=== PATIENT | female | born 1995 | race Caucasian/White ===

== ENCOUNTER → 2017-10-15 | Emergency (ER) | payer OTHER ==
[~2017-10-15] VITALS: Ht 157.5 cm; Wt 44.0 kg
== END | disposition left against medical advice (07) ==
LOC: ER 20:15
DX: Z53.20 Procedure and treatment not carried out because of patient's decision for unspecified reasons (principal)

== ENCOUNTER 2017-11-22 00:07 | Emergency (ER) | payer OTHER ==
[~2017-11-22] VITALS: Ht 157.5 cm; Wt 43.5 kg
[2017-11-22] MEDS ORDERED: MACRODANTIN100 M1 PO (04:54)
[2017-11-22] MEDS ORDERED: PRENATABS RX T1 EACH PO (04:56)
== END 2017-11-22 07:20 | disposition home or self-care (01) ==
LOC: ER 00:07
DX: Z34.01 Encounter for supervision of normal first pregnancy, first trimester (principal); R10.2 Pelvic and perineal pain; N39.0 Urinary tract infection, site not specified

== ENCOUNTER 2017-12-01 20:47 | Emergency (ER) | payer OTHER ==
[~2017-12-01] VITALS: Ht 157.5 cm; Wt 44.0 kg
[~2017-12-01 20:47] MED LIST: MACRODANTIN100 M1 PO; PRENATABS RX T1 EACH PO
== END 2017-12-02 04:26 | disposition home or self-care (01) ==
LOC: ER 20:47
DX: O20.0 Threatened abortion (principal); Z34.01 Encounter for supervision of normal first pregnancy, first trimester

== ENCOUNTER 2018-06-26 21:38 | Outpatient (CLI) | payer OTHER | END 2018-06-27 14:06 | disposition HB | LOC: OBS/DEL 21:38 | DX: O26.893 Other specified pregnancy related conditions, third trimester (principal); O47.1 False labor at or after 37 completed weeks of gestation; Z34.03 Encounter for supervision of normal first pregnancy, third trimester ==

== ENCOUNTER 2018-07-08 07:37 | Inpatient (IN) | payer OTHER ==
[~2018-07-08] VITALS: Ht 157.5 cm; Wt 57.2 kg
== END 2018-07-10 13:10 | DRG 768 ==
LOC: LDR 07:37 → OB/GYN 07:37 → LDR 19:21 → OB/GYN 07-09 00:35
PROC: 10E0XZZ Delivery of Products of Conception, External Approach (ICD-10-PCS; principal; 2018-07-08)
PROC: 0DQR0ZZ Repair Anal Sphincter, Open Approach (ICD-10-PCS; 2018-07-08)
PROC: 4A1HXCZ Monitoring of Products of Conception, Cardiac Rate, External Approach (ICD-10-PCS; 2018-07-08)
DX: O70.21 Third degree perineal laceration during delivery, IIIa (principal); Z37.0 Single live birth; Z3A.39 39 weeks gestation of pregnancy

== ENCOUNTER 2021-12-31 13:49 | Emergency (ER) | payer OTHER ==
[~2021-12-31] VITALS: Ht 157.5 cm; Wt 59.9 kg
[2021-12-31] MEDS ORDERED: FOLIC ACID0.8 M1 (14:37)
[2021-12-31] MEDS ORDERED: MUCINEX D ER 61 EACH PO (18:47)
[2021-12-31] MEDS ORDERED: CETIRIZINE HCL5 MG PO (18:47)
[2021-12-31] MEDS ORDERED: LEVALBUTER0.63 MG/3 IH (18:47)
== END 2021-12-31 19:14 | disposition home or self-care (01) ==
LOC: ER 13:49
DX: O26.892 Other specified pregnancy related conditions, second trimester (principal); O98.512 Other viral diseases complicating pregnancy, second trimester; A49.3 Mycoplasma infection, unspecified site; J06.9 Acute upper respiratory infection, unspecified; Z3A.24 24 weeks gestation of pregnancy; Z88.0 Allergy status to penicillin; Z88.1 Allergy status to other antibiotic agents

== ENCOUNTER 2022-03-13 11:51 | Emergency (ER) | payer OTHER ==
[~2022-03-13] VITALS: Ht 157.5 cm; Wt 63.5 kg
[~2022-03-13 11:51] MED LIST changes: +CETIRIZINE HCL5 MG PO; +FOLIC ACID0.8 M1; +LEVALBUTER0.63 MG/3 IH; +MUCINEX D ER 61 EACH PO
[2022-03-13] MEDS ORDERED: PEPCID AC20 MG PO (19:07)
[2022-03-13] MEDS ORDERED: ONDANSETRON ODT8 MG PO (19:07)
[2022-03-13] MEDS ORDERED: MACRODANTIN100 M1 PO (19:11)
== END 2022-03-13 20:06 | disposition home or self-care (01) ==
LOC: ER 11:51
DX: O99.619 Diseases of the digestive system complicating pregnancy, unspecified trimester (principal); K92.89 Other specified diseases of the digestive system; K29.70 Gastritis, unspecified, without bleeding; Z88.1 Allergy status to other antibiotic agents; Z88.0 Allergy status to penicillin

== ENCOUNTER 2024-02-15 14:30 | Emergency (ER) | payer OTHER ==
[~2024-02-15] VITALS: Ht 162.6 cm; Wt 50.8 kg
[~2024-02-15 14:30] MED LIST changes: +ONDANSETRON ODT8 MG PO; +PEPCID AC20 MG PO
[2024-02-15] MEDS ORDERED: 0.9 % SODIUM CHLORIDE 1,000 ML IV ONE (16:45)
[2024-02-15] MEDS ORDERED: HYOSCYAMINE SULFATE 0.125 MG TAB.SUBL SL ONE (16:45)
[2024-02-15] MEDS ORDERED: ONDANSETRON HCL 2 MG/ML VIAL IV ONE (16:45)
[2024-02-15 17:02] LABS: MEAN CELL VOLUME 92.4 fL (80.00-100.00); MEAN CORPUSCULAR HEMOGLOBIN 31.5 pg (27.00-32.0); MEAN CORPUSCULAR HGB CONC 34.1 g/dl (32.0-36.0); PLATELET COUNT 273 K/uL (150-450); RED BLOOD COUNT 4.76 M/uL (4.00-6.00)
[2024-02-15 17:26] LABS: ALBUMIN 4.6 gm/dL (3.4-5.0); BILIRUBIN TOTAL 0.52 mg/dL (0.3-1.2); CALCIUM 9.9 mg/dL (8.5-10.1); CREATININE SERUM 0.75 mg/dL (0.55-1.02); GFR 93.41; GLOBULINA 4.1 G/DL (2.4-3.5); POTASSIUM 3.88 mEq/L (3.5-5.1); TOTAL PROTEIN 8.7 gm/dL (6.4-8.2)
[2024-02-15 18:10] LABS: PH,URINE 6.5 (5.0-8.0); URINE APPEARANCE Clear; URINE BILIRRUBIN Negative (NEGATIVE); URINE BLOOD Negative; URINE COLOR Yellow; URINE GLUCOSE Negative (NEGATIVE); URINE LEUKOCYTE Negative; URINE NITRATE Negative; URINE PROTEIN Negative (NEGATIVE); URINE UROBILINOGEN 0.2 E.U./dl
[2024-02-15 18:14] LABS: URINE BACTERIA 591.9 uL (0.0-1933); URINE EPITHELIAL CELLS 11.2 uL (0.0-38.8); URINE RBC 0.6 uL (0.0-20.8); URINE WBC 5.7 uL (0.0-23.2)
== END 2024-02-15 19:16 | disposition home or self-care (01) ==
LOC: ER 14:31
PROVIDERS: General Practice
DX: K52.9 Noninfective gastroenteritis and colitis, unspecified (principal); R10.9 Unspecified abdominal pain; Z88.0 Allergy status to penicillin

== ENCOUNTER 2025-04-02 14:20 | Emergency (ER) | payer OTHER ==
[~2025-04-02] VITALS: Ht 157.5 cm; Wt 47.6 kg
[2025-04-02] MEDS ORDERED: PRENATABS FA T1 EACH (14:33)
[2025-04-02] MEDS ORDERED: DIPHENHYDRAMINE HCL 25 MG CAPSULE PO STA (16:40)
[2025-04-02 17:03] LABS: BASO % 0.6 % (0.1-1.2); EOS # 0.28 (0.04-0.54); EOS % 3.4 % (0.7-7.0); LYMPH # 1.40 (1.18-3.74); LYMPH % 17.0 % (19.3-53.1); MEAN PLATELET VOLUME 9.90 fl (9.4-12.4); MONO # 0.60 (0.24-0.82); MONO % 7.3 % (4.7-12.5); NEUT # 5.84 (1.56-6.13); NEUT % 70.9 % (34.0-71.1); RED CELL DISTRIBUTION WIDTH 13.5 % (11.6-14.4)
[2025-04-02 17:57] LABS: URINE APPEARANCE Clear; URINE BILIRRUBIN Negative (NEGATIVE); URINE BLOOD Negative; URINE COLOR Yellow; URINE GLUCOSE Negative (NEGATIVE); URINE KETONE Negative (NEGATIVE); URINE LEUKOCYTE Negative; URINE NITRATE Negative; URINE PROTEIN Negative (NEGATIVE); URINE UROBILINOGEN 0.2 E.U./dl
[2025-04-02 18:01] LABS: URINE EPITHELIAL CELLS 1.6 uL (0.0-38.8); URINE WBC 3.2 uL (0.0-23.2)
[2025-04-02 18:06] LABS: URINE BACTERIA 3.5 uL (0.0-1933); URINE CAST 0.14 uL (0.0-1.40); URINE RBC 1.6 uL (0.0-20.8)
[2025-04-02 18:26] LABS: ALT/SGPT 37.0 U/L (12-78); AST/SGOT 16.0 U/L (15-37); BILIRUBIN TOTAL 0.26 mg/dL (0.3-1.2); BUN CREA RATIO 11.0 (7.0-25.0); CREATININE SERUM 0.61 mg/dL (0.55-1.02); GFR 117.65; GLOBULINA 4.1 G/DL (2.4-3.5); GLUCOSE FASTING 83.0 mg/dL (65-100); OSMOLALITY SERUM 271.0 MOSM/KG (275-295)
== END 2025-04-02 18:49 | disposition home or self-care (01) ==
LOC: ER 14:20
PROVIDERS: General Practice
DX: O99.891 Other specified diseases and conditions complicating pregnancy (principal); Z3A.12 12 weeks gestation of pregnancy; T78.40XA Allergy, unspecified, initial encounter; Z88.0 Allergy status to penicillin; N39.0 Urinary tract infection, site not specified

== ENCOUNTER 2025-04-30 13:35 | Emergency (ER) | payer OTHER ==
[~2025-04-30] VITALS: Ht 152.4 cm; Wt 47.2 kg
[~2025-04-30 13:35] MED LIST changes: +PRENATABS FA T1 EACH
[2025-04-30 16:05] LABS: BASO % 0.9 % (0.1-1.2); EOS # 0.18 (0.04-0.54); EOS % 1.9 % (0.7-7.0); LYMPH # 1.35 (1.18-3.74); LYMPH % 14.5 % (19.3-53.1); MEAN PLATELET VOLUME 10.20 fl (9.4-12.4); MONO # 0.67 (0.24-0.82); MONO % 7.2 % (4.7-12.5); NEUT # 6.85 (1.56-6.13); NEUT % 73.6 % (34.0-71.1); RED CELL DISTRIBUTION WIDTH 14.5 % (11.6-14.4)
[2025-04-30 16:47] LABS: ALT/SGPT 16.0 U/L (12-78); AST/SGOT 10.0 U/L (15-37); BILIRUBIN TOTAL 0.33 mg/dL (0.3-1.2); BUN CREA RATIO 12.0 (7.0-25.0); CREATININE SERUM 0.58 mg/dL (0.55-1.02); GFR 124.7; GLOBULINA 3.6 G/DL (2.4-3.5); GLUCOSE FASTING 80.0 mg/dL (65-100); OSMOLALITY SERUM 276.0 MOSM/KG (275-295)
[2025-04-30 17:12] LABS: HCG QUANTITATIVE 65961.0 mUI/mL (1-3)
[2025-04-30 17:15] LABS: URINE APPEARANCE Clear; URINE BILIRRUBIN Negative (NEGATIVE); URINE BLOOD Negative; URINE COLOR Yellow; URINE GLUCOSE Negative (NEGATIVE); URINE KETONE Negative (NEGATIVE); URINE LEUKOCYTE Negative; URINE NITRATE Negative; URINE PROTEIN Negative (NEGATIVE); URINE UROBILINOGEN 0.2 E.U./dl
[2025-04-30 17:20] LABS: URINE BACTERIA 230.2 uL (0.0-1933); URINE EPITHELIAL CELLS 12.5 uL (0.0-38.8); URINE RBC 4.2 uL (0.0-20.8); URINE WBC 11.5 uL (0.0-23.2)
[2025-04-30 17:42] LABS: URINE CAST 0.00 uL (0.0-1.40)
[2025-04-30] MEDS ORDERED: MONISTAT 745 GM VAG (19:31)
== END 2025-04-30 20:59 | disposition home or self-care (01) ==
LOC: ER 13:35
PROVIDERS: General Practice
DX: O98.812 Other maternal infectious and parasitic diseases complicating pregnancy, second trimester (principal); O26.892 Other specified pregnancy related conditions, second trimester; R10.2 Pelvic and perineal pain; Z3A.16 16 weeks gestation of pregnancy; Z88.0 Allergy status to penicillin; Z88.8 Allergy status to other drugs, medicaments and biological substances